=== PATIENT | male | born 1940 | race Caucasian/White ===

== ENCOUNTER → 2019-08-02 | Outpatient (CLI) | payer MEDICARE, BC ==
[2019-08-02 21:06] LABS: IgA 503 mg/dL (61-437); IgG 1080 mg/dL (700-1600); IgM 49 mg/dL (15-143)
[2019-08-04 05:10] LABS: ANA INTERPRETATION Negative (Negative); ANTI-SSA <0.2 AI (0.0-0.9); ANTIJO-I AB <0.2 AI (0.0-0.9)
== END ==
LOC: M.MRI 07-21 15:15 → M.LAB 09:30 → M.MRI 12:09
PROVIDERS: Psychiatry & Neurology Neuromuscular Medicine
DX: M50.11 Cervical disc disorder with radiculopathy, high cervical region (principal); M51.24 Other intervertebral disc displacement, thoracic region; M48.03 Spinal stenosis, cervicothoracic region; G62.2 Polyneuropathy due to other toxic agents; G56.01 Carpal tunnel syndrome, right upper limb; Z98.1 Arthrodesis status